=== PATIENT | male | born 1960 | race African-American/Black ===

== ENCOUNTER 2022-04-28 02:38 | Inpatient (IN) | payer SELFPAY ==
[2022-04-28] MEDS ORDERED: Acetaminophen 325 MG TAB PO PRN (03:56)
[2022-04-28] MEDS ORDERED: Ondansetron PF 4 MG/2 ML Vial IVP PRN (03:56)
[2022-04-28] MEDS ORDERED: Ondansetron ODT 4 MG TAB PO PRN (03:56)
[2022-04-28] MEDS ORDERED: Acetaminophen 650 MG Suppository PR PRN (03:56)
[2022-04-28] MEDS ORDERED: Cefepime 2 GM in Sodium Chloride 0.9% 100 ML IVPB SCH (05:15)
[2022-04-28 05:19] LABS: Actual Bicarbonate (HCO3a) 24.5 mEq/L (22-28); Base Excess (BEa) 1.8 mEq/L (-2.0 to +3.0); CO2 Tension 30.5 mmHg (35.0-45.0); Calcium, Ionized (arterial) 0.95 mmol/L (1.12-1.30); Carboxyhemoglobin (COHb) 1.1 gm% (0.0-3.0); Hemoglobin (Hb) 8.6 g/dL (14.0-18.0); O2 Tension (PaO2), arterial 145.3 mmHg (> 80.0); Potassium - ABG Lab 4.43 mmol/L (3.70-5.30); pH, Arterial 7.52 (7.35-7.45)
[2022-04-28 05:20] VITALS: BMI 25.7
[2022-04-28 05:20] LABS: ALV-art Gradient 101.775 mmHg (0-20); Puncture Site LRA
[2022-04-28] MEDS ORDERED: Amlodipine 10 MG TAB PO SCH ×2 (05:30→09:00)
[2022-04-28] MEDS: Labetalol HCl 100 MG/20 ML VIAL SLOW IVP PRN (05:45)
[2022-04-28] MEDS ORDERED: Nitroglycerin 50 MG/250 ML BOT 250 ML IVPB SCH (06:00)
[2022-04-28 06:42] LABS: Troponin I 0.304 ng/mL (< 0.028)
[2022-04-28] MEDS: Carvedilol 3.125 MG TAB PO SCH ×2 (07:42→17:28)
[2022-04-28] MEDS ORDERED: Heparin 10,000 UNITS/ 10 ML VIAL ONE (08:43)
[2022-04-28] MEDS: Enoxaparin Sodium 30 MG/0.3 ML SYRINGE SC SCH (08:50)
[2022-04-28 09:16] LABS: Troponin I 0.305 ng/mL (< 0.028)
[2022-04-28] MEDS ORDERED: Vancomycin 1 GM in Premix Bag 1 BAG IVPB SCH (11:00)
[2022-04-28] MEDS: ADMIXTURE FEE IVPB SCH (14:00)
[2022-04-28] MEDS: NICARDIPINE IVPB SCH (14:00)
[2022-04-28] MEDS: SODIUM CHLORIDE IVPB SCH (14:00)
[2022-04-28] MEDS ORDERED: Vancomycin Diaylsis Sliding Scale (Wt 71-99) FS SCH (14:15)
[2022-04-28 15:33] LABS: HBSAg Index 0.44 S/CO (0-0.99); Hep B Core Total Ab Non-Reactive (NonReactive); Hep B Core Total Index 0.16 S/CO (0-0.79); Hep B Surf Ag Non-Reactive S/CO (NonReactive); Hep C IgG Ab Non-Reactive (NonReactive); Hep C Index 0.11 S/CO (0-0.79)
[2022-04-28 16:02] LABS: HBSAB Concentration Greater than 1000.00 mIU/mL; Hep B Surf AB Reactive (NonReactive)
[2022-04-28] MEDS: Famotidine 20 MG TAB PO SCH (20:06)
[2022-04-28] MEDS: Cefepime 0.5 GM, Admixture Fee 1 EACH in Sodium Chloride 0.9% 100 ML IVPB SCH (21:19)
[2022-04-29 00:17] LABS: Legionella Urinary Ag Negative (Negative); Strep pneumo Urine Ag NEGATIVE (NEGATIVE)
[2022-04-29 00:21] LABS: Amphetamine Not Detected (NotDetected); Barbiturates Screen Not Detected (NotDetected); Benzodiazepine Screen Not Detected (NotDetected); Cocaine Metabolite Screen Detected (NotDetected); Methadone Not Detected (NotDetected); Methamphetamine Not Detected (NotDetected); Opiate Screen Not Detected (NotDetected); Oxycodone Screen Not Detected (NotDetected); Phencyclidine (PCP) Not Detected (NotDetected); THC/Cannabinoid Screen Not Detected (NotDetected); Tricyclic Screen Not Detected (NotDetected)
[2022-04-29 04:20] LABS: Anion Gap 20 mmol/L (10-20); BUN (Urea Nitrogen) 74 mg/dL (8.4-25.7); Calc. Creatinine Clearance 9 mL/min (70-130); Calcium 7.2 mg/dL (7.8-10.44); Carbon Dioxide 23 mmol/L (23-31); Chloride 99 mmol/L (98-107); Glucose 166 mg/dL (80-115); Sodium 137 mmol/L (136-145)
[2022-04-29 05:22] LABS: Band 13 % (5-11); Hemoglobin 8.9 g/dL (14.0-18.0); Lymphocytes 1 % (21-51); MDiff Complete? YES; Mean Corpuscular HGB CONC 31.3 g/dL (32.0-36.0); Mean Corpuscular Hemoglobin 32.5 pg (27.0-31.0); Mean Platelet Volume 8.8 fL (7.4-10.4); Monocytes 4 % (0-10); Neutrophil 82 % (42-75); Platelet Count 122 thou/uL (130-400); RBC Distribution Width 14.2 % (11.5-14.5); Red Blood Cell (RBC) Count 2.74 mill/uL (4.70-6.10); White Blood Cell (WBC) Count 23.1 thou/uL (4.8-10.8)
[2022-04-29] MEDS: Carvedilol 3.125 MG TAB PO SCH (07:35)
[2022-04-29] MEDS ORDERED: Heparin 10,000 UNITS/ 10 ML VIAL ONE (07:38)
[2022-04-29] MEDS ORDERED: hydrALAZINE 25 MG TAB PO SCH (09:00)
[2022-04-29] MEDS: Famotidine 20 MG TAB PO SCH ×2 (09:16→20:47)
[2022-04-29] MEDS: Enoxaparin Sodium 30 MG/0.3 ML SYRINGE SC SCH (09:16)
[2022-04-29] MEDS: ADMIXTURE FEE IVPB SCH ×2 (09:24→20:47)
[2022-04-29] MEDS: NICARDIPINE IVPB SCH ×2 (09:24→20:47)
[2022-04-29] MEDS: SODIUM CHLORIDE IVPB SCH ×2 (09:24→20:47)
[2022-04-29] MEDS ORDERED: Amlodipine 5 MG TAB PO SCH ×2 (09:45→13:15)
[2022-04-29] MEDS ORDERED: Carvedilol 6.25 MG TAB PO SCH (17:00)
[2022-04-29] MEDS: Carvedilol 6.25 MG TAB PO SCH (17:36)
[2022-04-29] MEDS: Cefepime 0.5 GM, Admixture Fee 1 EACH in Sodium Chloride 0.9% 100 ML IVPB SCH (20:47)
[2022-04-29] MEDS: hydrALAZINE 25 MG TAB PO PRN (22:32)
[2022-04-30 03:57] LABS: Anion Gap 18 mmol/L (10-20); BUN (Urea Nitrogen) 54 mg/dL (8.4-25.7); Calc. Creatinine Clearance 12 mL/min (70-130); Calcium 7.8 mg/dL (7.8-10.44); Carbon Dioxide 25 mmol/L (23-31); Chloride 99 mmol/L (98-107); Glucose 100 mg/dL (80-115); Potassium 4.4 mmol/L (3.5-5.1); Sodium 138 mmol/L (136-145)
[2022-04-30 04:03] LABS: Hemoglobin 9.2 g/dL (14.0-18.0); Mean Corpuscular HGB CONC 31.4 g/dL (32.0-36.0); Mean Corpuscular Hemoglobin 32.2 pg (27.0-31.0); Mean Platelet Volume 8.5 fL (7.4-10.4); Platelet Count 146 thou/uL (130-400); RBC Distribution Width 13.9 % (11.5-14.5); Red Blood Cell (RBC) Count 2.85 mill/uL (4.70-6.10); White Blood Cell (WBC) Count 19.2 thou/uL (4.8-10.8)
[2022-04-30 04:32] LABS: Band 4 % (5-11); Eosinophils 3 % (0-10); Lymphocytes 4 % (21-51); MDiff Complete? YES; Monocytes 6 % (0-10); Neutrophil 83 % (42-75)
[2022-04-30] MEDS: Famotidine 20 MG TAB PO SCH (08:33)
[2022-04-30] MEDS: Carvedilol 6.25 MG TAB PO SCH ×2 (08:34→16:47)
[2022-04-30] MEDS: Enoxaparin Sodium 30 MG/0.3 ML SYRINGE SC SCH (08:34)
[2022-04-30] MEDS: Amlodipine 5 MG TAB PO SCH (08:35)
[2022-04-30] MEDS: SODIUM CHLORIDE IVPB SCH (08:36)
[2022-04-30] MEDS: NICARDIPINE IVPB SCH (08:36)
[2022-04-30] MEDS: ADMIXTURE FEE IVPB SCH (08:36)
[2022-04-30] MEDS ORDERED: Amlodipine 5 MG TAB PO SCH (09:00)
[2022-04-30] MEDS: hydrALAZINE 25 MG TAB PO PRN (14:41)
[2022-05-01] MEDS: Labetalol HCl 100 MG/20 ML VIAL SLOW IVP PRN ×2 (04:24→07:42)
[2022-05-01 07:01] LABS: #Eosinphils 0.1 thou/uL (0.0-0.7); #Lymphocytes 0.6 thou/uL (1.20-3.40); #Monocytes 0.9 thou/uL (0.11-0.59); #Neutrophils 13.9 thou/uL (1.40-6.50); %Eosinophils 0.4 % (0.0-10.0); %Lymphocytes 3.7 % (21.0-51.0); %Monocytes 5.7 % (0.0-10.0); %Neutrophils 90.3 % (42.0-75.0); Hemoglobin 8.5 g/dL (14.0-18.0); Mean Corpuscular Hemoglobin 31.7 pg (27.0-31.0); Platelet Count 184 thou/uL (130-400); RBC Distribution Width 14.3 % (11.5-14.5); Red Blood Cell (RBC) Count 2.69 mill/uL (4.70-6.10); White Blood Cell (WBC) Count 15.4 thou/uL (4.8-10.8)
[2022-05-01 07:05] LABS: Anion Gap 20 mmol/L (10-20); BUN (Urea Nitrogen) 75 mg/dL (8.4-25.7); Calc. Creatinine Clearance 10 mL/min (70-130); Calcium 7.6 mg/dL (7.8-10.44); Carbon Dioxide 21 mmol/L (23-31); Chloride 101 mmol/L (98-107); Glucose 134 mg/dL (80-115); Potassium 4.4 mmol/L (3.5-5.1); Sodium 138 mmol/L (136-145)
[2022-05-01] MEDS ORDERED: Nitroglycerin 0.4 MG TAB (25 Tab Bottle) ONE (07:49)
[2022-05-01] MEDS ORDERED: Morphine 4 MG/ML VIAL ONE (07:52)
[2022-05-01 08:39] LABS: Magnesium 2.4 mg/dL (1.6-2.6)
[2022-05-01] MEDS: Carvedilol 6.25 MG TAB PO SCH ×2 (08:40→16:43)
[2022-05-01] MEDS: Amlodipine 5 MG TAB PO SCH (08:41)
[2022-05-01] MEDS: Famotidine 20 MG TAB PO SCH (08:41)
[2022-05-01] MEDS: Enoxaparin Sodium 30 MG/0.3 ML SYRINGE SC SCH (08:41)
[2022-05-01 08:43] LABS: Troponin I 0.136 ng/mL (< 0.028)
[2022-05-01] MEDS ORDERED: Lidocaine 1% (PF) 30 ML VIAL ONE (09:13)
[2022-05-01] MEDS ORDERED: Nitroglycerin 50 MG/250 ML BOT 250 ML ONE (09:34)
[2022-05-01] MEDS ORDERED: Iopamidol 370 76% 100 ML VIAL ONE (09:49)
[2022-05-01] MEDS ORDERED: Heparin 10,000 UNITS/ 10 ML VIAL ONE (10:04)
[2022-05-01] MEDS ORDERED: Nitroglycerin 0.4 MG TAB (25 Tab Bottle) SL PRN (10:07)
[2022-05-01] MEDS ORDERED: Acetaminophen/Codeine 30-300mg Tablet PO PRN ×2 (10:07)
[2022-05-01] MEDS ORDERED: Sodium Chloride 0.9% 200 ML IV PRN (10:07)
[2022-05-01] MEDS ORDERED: Nitroglycerin 50 MG/250 ML BOT 250 ML IVPB SCH (12:00)
[2022-05-01] MEDS: hydrALAZINE 25 MG TAB PO PRN (13:24)
[2022-05-01] MEDS ORDERED: NIFEdipine XL 30 MG TAB PO SCH (16:00)
[2022-05-01] MEDS ORDERED: Losartan 25 MG TAB PO SCH (16:00)
[2022-05-01] MEDS: NIFEdipine XL 30 MG TAB PO SCH (20:02)
[2022-05-02 03:51] LABS: #Eosinphils 0.1 thou/uL (0.0-0.7); #Lymphocytes 0.8 thou/uL (1.20-3.40); #Monocytes 0.8 thou/uL (0.11-0.59); #Neutrophils 10.3 thou/uL (1.40-6.50); %Basophils 0.3 % (0.0-1.0); %Eosinophils 0.6 % (0.0-10.0); %Lymphocytes 6.4 % (21.0-51.0); %Monocytes 6.5 % (0.0-10.0); %Neutrophils 86.2 % (42.0-75.0); Hemoglobin 9.5 g/dL (14.0-18.0); Mean Corpuscular HGB CONC 31.6 g/dL (32.0-36.0); Mean Corpuscular Hemoglobin 31.8 pg (27.0-31.0); Mean Platelet Volume 7.9 fL (7.4-10.4); Platelet Count 217 thou/uL (130-400); RBC Distribution Width 14.3 % (11.5-14.5); White Blood Cell (WBC) Count 11.9 thou/uL (4.8-10.8)
[2022-05-02 04:09] LABS: Anion Gap 18 mmol/L (10-20); BUN (Urea Nitrogen) 49 mg/dL (8.4-25.7); Calc. Creatinine Clearance 13 mL/min (70-130); Carbon Dioxide 25 mmol/L (23-31); Chloride 98 mmol/L (98-107); Glucose 178 mg/dL (80-115); Potassium 4.1 mmol/L (3.5-5.1); Sodium 137 mmol/L (136-145)
[2022-05-02] MEDS: Enoxaparin Sodium 30 MG/0.3 ML SYRINGE SC SCH (08:26)
[2022-05-02] MEDS: Losartan 25 MG TAB PO SCH (08:27)
[2022-05-02] MEDS: Carvedilol 6.25 MG TAB PO SCH ×2 (08:27→16:20)
[2022-05-02] MEDS: Famotidine 20 MG TAB PO SCH (08:27)
[2022-05-02] MEDS: NIFEdipine XL 30 MG TAB PO SCH ×2 (08:27→20:54)
[2022-05-03 07:07] LABS: #Eosinphils 0.1 thou/uL (0.0-0.7); #Lymphocytes 1.2 thou/uL (1.20-3.40); #Monocytes 0.9 thou/uL (0.11-0.59); #Neutrophils 10.5 thou/uL (1.40-6.50); %Basophils 0.3 % (0.0-1.0); %Eosinophils 0.4 % (0.0-10.0); %Lymphocytes 9.3 % (21.0-51.0); %Monocytes 7.2 % (0.0-10.0); %Neutrophils 82.7 % (42.0-75.0); Hemoglobin 9.1 g/dL (14.0-18.0); Mean Corpuscular HGB CONC 31.2 g/dL (32.0-36.0); Mean Corpuscular Hemoglobin 31.5 pg (27.0-31.0); Mean Platelet Volume 7.5 fL (7.4-10.4); Platelet Count 243 thou/uL (130-400); RBC Distribution Width 14.3 % (11.5-14.5); Red Blood Cell (RBC) Count 2.89 mill/uL (4.70-6.10); White Blood Cell (WBC) Count 12.7 thou/uL (4.8-10.8)
[2022-05-03 07:21] LABS: Anion Gap 20 mmol/L (10-20); BUN (Urea Nitrogen) 69 mg/dL (8.4-25.7); Calc. Creatinine Clearance 10 mL/min (70-130); Calcium 7.6 mg/dL (7.8-10.44); Carbon Dioxide 22 mmol/L (23-31); Chloride 101 mmol/L (98-107); Glucose 96 mg/dL (80-115); Potassium 4.6 mmol/L (3.5-5.1); Sodium 138 mmol/L (136-145)
[2022-05-03] MEDS: Enoxaparin Sodium 30 MG/0.3 ML SYRINGE SC SCH (07:22)
[2022-05-03] MEDS: Losartan 25 MG TAB PO SCH (07:22)
[2022-05-03] MEDS: NIFEdipine XL 30 MG TAB PO SCH (07:22)
[2022-05-03] MEDS: Carvedilol 6.25 MG TAB PO SCH (07:23)
[2022-05-03] MEDS: Famotidine 20 MG TAB PO SCH (07:23)
[2022-05-03 12:17] VITALS: BP 123/86; TEMP 98
== END 2022-05-03 13:52 | disposition home or self-care (01) | DRG 871 ==
LOC: ERS 02:38 → CCU 03:20 → T4-B 04-30 15:41 → CCU 05-01 10:25 → T4-B 05-02 10:26
PROVIDERS: ADMIT Internal Medicine; ATTEND Internal Medicine
PROC: 3E03329 Introduction of Other Anti-infective into Peripheral Vein, Percutaneous Approach (ICD-10-PCS; principal; 2022-04-28)
PROC: 5A09357 Assistance with Respiratory Ventilation, Less than 24 Consecutive Hours, Continuous Positive Airway Pressure (ICD-10-PCS; 2022-04-28)
PROC: 5A1D70Z Performance of Urinary Filtration, Intermittent, Less than 6 Hours Per Day (ICD-10-PCS; 2022-04-28)
PROC: 4A023N7 Measurement of Cardiac Sampling and Pressure, Left Heart, Percutaneous Approach (ICD-10-PCS; 2022-05-01)
PROC: B2151ZZ Fluoroscopy of Left Heart using Low Osmolar Contrast (ICD-10-PCS; 2022-05-01)
PROC: B2111ZZ Fluoroscopy of Multiple Coronary Arteries using Low Osmolar Contrast (ICD-10-PCS; 2022-05-01)
DX: A41.9 Sepsis, unspecified organism (principal); Z20.822 Contact with and (suspected) exposure to COVID-19; J18.9 Pneumonia, unspecified organism; N18.6 End stage renal disease; J96.00 Acute respiratory failure, unspecified whether with hypoxia or hypercapnia; I21.A1 Myocardial infarction type 2; I13.2 Hypertensive heart and chronic kidney disease with heart failure and with stage 5 chronic kidney disease, or end stage renal disease; I16.1 Hypertensive emergency; J44.0 Chronic obstructive pulmonary disease with (acute) lower respiratory infection; R04.2 Hemoptysis; E87.3 Alkalosis; I42.9 Cardiomyopathy, unspecified; I50.9 Heart failure, unspecified; F17.210 Nicotine dependence, cigarettes, uncomplicated; F12.10 Cannabis abuse, uncomplicated; D63.1 Anemia in chronic kidney disease; E88.09 Other disorders of plasma-protein metabolism, not elsewhere classified; F14.10 Cocaine abuse, uncomplicated; T40.5X1A Poisoning by cocaine, accidental (unintentional), initial encounter; T40.711A Poisoning by cannabis, accidental (unintentional), initial encounter; I25.10 Atherosclerotic heart disease of native coronary artery without angina pectoris; E87.5 Hyperkalemia; Z28.21 Immunization not carried out because of patient refusal; Z99.2 Dependence on renal dialysis; Z79.899 Other long term (current) drug therapy; Z98.890 Other specified postprocedural states; Z91.14 Patient's other noncompliance with medication regimen; Z82.49 Family history of ischemic heart disease and other diseases of the circulatory system; Z91.11 Patient's noncompliance with dietary regimen; Z71.51 Drug abuse counseling and surveillance of drug abuser
CPT/HCPCS: 36415; 36600; 71045; 80048; 80202; 80306; 82553; 82805; 83735; 83880; 84145; 84484; 85025; 86704; 87070; 87081; 87205; 87340; 87449; 87899; 89220; 90935; 93005; 93010; 93306; 93458; 93798; 94640; 94660; 96365; 96366; G0257; J0692; J1644; J1650; J1956; J2001; J2270; J3370; J3490; J7050; J7620; Q9967

== ENCOUNTER 2022-08-26 18:52 | Inpatient (IN) | payer MEDICARE ==
[2022-08-26] MEDS ORDERED: Ondansetron PF 4 MG/2 ML Vial IVP PRN (20:20)
[2022-08-26] MEDS ORDERED: Acetaminophen 325 MG TAB PO PRN (20:20)
[2022-08-26] MEDS ORDERED: Activase 2 MG VIAL CATH SCH ×2 (23:15)
[2022-08-26] MEDS ORDERED: Sterile Water 10 ML VIAL IVP SCH (23:15)
[2022-08-27 00:05] VITALS: BMI 21.7
[2022-08-27] MEDS: Heparin 5,000 UNITS/ML VIAL SC SCH ×3 (00:21→21:14)
[2022-08-27] MEDS ORDERED: Metoprolol Tartrate 5 MG/5 ML VIAL IVP SCH (01:00)
[2022-08-27] MEDS ORDERED: hydrALAZINE 20 MG/ML VIAL SLOW IVP PRN (04:56)
[2022-08-27 05:09] LABS: #Lymphocytes 0.4 thou/uL (1.20-3.40); #Monocytes 0.3 thou/uL (0.11-0.59); #Neutrophils 4.2 thou/uL (1.40-6.50); %Basophils 0.3 % (0.0-1.0); %Eosinophils 0.7 % (0.0-10.0); %Lymphocytes 7.9 % (21.0-51.0); %Monocytes 6.1 % (0.0-10.0); Hemoglobin 9.2 g/dL (14.0-18.0); Mean Corpuscular HGB CONC 31.4 g/dL (32.0-36.0); Mean Corpuscular Hemoglobin 30.7 pg (27.0-31.0); Mean Corpuscular Volume 97.9 fL (78.0-98.0); Mean Platelet Volume 8.6 fL (7.4-10.4); Platelet Count 147 thou/uL (130-400); RBC Distribution Width 15.7 % (11.5-14.5)
[2022-08-27 05:40] LABS: Anion Gap 19 mmol/L (10-20); BUN (Urea Nitrogen) 88 mg/dL (8.4-25.7); Calc. Creatinine Clearance 7 mL/min (70-130); Calcium 8.1 mg/dL (7.8-10.44); Carbon Dioxide 23 mmol/L (23-31); Chloride 104 mmol/L (98-107); Estimated GFR 5; Glucose 100 mg/dL (80-115); Sodium 142 mmol/L (136-145)
[2022-08-27 06:06] LABS: Amphetamine Not Detected (NotDetected); Barbiturates Screen Not Detected (NotDetected); Benzodiazepine Screen Not Detected (NotDetected); Cocaine Metabolite Screen Detected (NotDetected); Methadone Not Detected (NotDetected); Methamphetamine Not Detected (NotDetected); Opiate Screen Not Detected (NotDetected); Oxycodone Screen Not Detected (NotDetected); Phencyclidine (PCP) Not Detected (NotDetected); THC/Cannabinoid Screen Not Detected (NotDetected); Tricyclic Screen Not Detected (NotDetected)
[2022-08-27 06:09] LABS: Bacteria/HPF None Seen HPF (None Seen); Bilirubin Negative (Negative); Blood, Urine 1+ (Negative); Clarity Clear (Clear); Glucose, Urine (Dipstick) 150 mg/dL (Negative); Ketone, Urine Negative (Negative); Leukocyte 75 Leu/uL (Negative); Nitrite Negative (Negative); Protein, Urine (Dipstick) 100 mg/dL (Neg-Trace); RBC/HPF 0-3 HPF (0-3); Specific Gravity, Urine 1.011 (1.002-1.036); Squamous Epithelial None Seen HPF (0-3); Urobilinogen Normal mg/dL (Less than 2); pH, Urine 6.5 (5.0-9.0)
[2022-08-27 06:10] LABS: Urine Culture Reflex Yes Yes
[2022-08-27] MEDS: Losartan 25 MG TAB PO SCH (08:56)
[2022-08-27] MEDS: NIFEdipine XL 30 MG TAB PO SCH ×2 (08:56→21:14)
[2022-08-27] MEDS ORDERED: hydrALAZINE 25 MG TAB PO SCH (09:00)
[2022-08-27] MEDS: hydrALAZINE 25 MG TAB PO SCH ×2 (15:16→21:15)
[2022-08-27] MEDS: Carvedilol 6.25 MG TAB PO SCH (16:58)
[2022-08-27 19:21] VITALS: TEMP 97.3
[2022-08-27] MEDS ORDERED: Atorvastatin Calcium 40 MG TAB PO SCH (21:00)
[2022-08-27 23:53] VITALS: BP 129/86
[2022-08-28 05:06] LABS: #Lymphocytes 0.7 thou/uL (1.20-3.40); #Monocytes 0.4 thou/uL (0.11-0.59); %Basophils 0.2 % (0.0-1.0); %Eosinophils 0.6 % (0.0-10.0); %Lymphocytes 14.1 % (21.0-51.0); %Neutrophils 77.2 % (42.0-75.0); Hemoglobin 9.3 g/dL (14.0-18.0); Mean Corpuscular Hemoglobin 31.4 pg (27.0-31.0); Mean Corpuscular Volume 98.4 fL (78.0-98.0); Mean Platelet Volume 8.6 fL (7.4-10.4); Platelet Count 152 thou/uL (130-400); RBC Distribution Width 15.3 % (11.5-14.5); Red Blood Cell (RBC) Count 2.94 mill/uL (4.70-6.10); White Blood Cell (WBC) Count 5.2 thou/uL (4.8-10.8)
[2022-08-28 05:46] LABS: Anion Gap 17 mmol/L (10-20); BUN (Urea Nitrogen) 105 mg/dL (8.4-25.7); Calc. Creatinine Clearance 6 mL/min (70-130); Calcium 7.6 mg/dL (7.8-10.44); Carbon Dioxide 23 mmol/L (23-31); Chloride 106 mmol/L (98-107); Estimated GFR 5; Glucose 105 mg/dL (80-115); Potassium 4.2 mmol/L (3.5-5.1); Sodium 142 mmol/L (136-145)
[2022-08-28] MEDS: Carvedilol 6.25 MG TAB PO SCH (08:25)
[2022-08-28] MEDS: Heparin 5,000 UNITS/ML VIAL SC SCH (08:26)
[2022-08-28] MEDS: Losartan 25 MG TAB PO SCH (08:30)
[2022-08-28] MEDS: hydrALAZINE 25 MG TAB PO SCH ×2 (08:30→14:43)
[2022-08-28] MEDS ORDERED: Aspirin 81 mg Enteric Coated Tablet PO SCH (09:00)
[2022-08-28] MEDS: NIFEdipine XL 30 MG TAB PO SCH (11:38)
== END 2022-08-28 16:00 | disposition home or self-care (01) | DRG 280 ==
LOC: ERS 18:52 → 2SW 19:56
PROVIDERS: ADMIT Internal Medicine; ATTEND Internal Medicine
PROC: 5A1D70Z Performance of Urinary Filtration, Intermittent, Less than 6 Hours Per Day (ICD-10-PCS; principal; 2022-08-26)
DX: I13.2 Hypertensive heart and chronic kidney disease with heart failure and with stage 5 chronic kidney disease, or end stage renal disease (principal); I21.A1 Myocardial infarction type 2; I50.23 Acute on chronic systolic (congestive) heart failure; N18.6 End stage renal disease; I16.1 Hypertensive emergency; Z20.822 Contact with and (suspected) exposure to COVID-19; D63.1 Anemia in chronic kidney disease; F14.10 Cocaine abuse, uncomplicated; F17.210 Nicotine dependence, cigarettes, uncomplicated; I25.10 Atherosclerotic heart disease of native coronary artery without angina pectoris; E78.5 Hyperlipidemia, unspecified; J44.9 Chronic obstructive pulmonary disease, unspecified; Z79.899 Other long term (current) drug therapy; Z91.199 Patient's noncompliance with other medical treatment and regimen due to unspecified reason; Z99.2 Dependence on renal dialysis; Z79.51 Long term (current) use of inhaled steroids
CPT/HCPCS: 36415; 80048; 80306; 81001; 83880; 85025; 87086; 90935; 93005; 94640; G0257; J1644; J2997; J7620; U0003; U0005